=== PATIENT | male | born 1955 | race Caucasian/White ===

== ENCOUNTER → 2017-04-13 | Outpatient (CLI) | payer OTHER ==
--- NOTE | 2017-04-13 14:22 | US ---
EXAMINATION TYPE: US kidneys/renal and bladder DATE OF EXAM: 04/13/2017 COMPARISON: NONE CLINICAL HISTORY: R82.99 Other abnormal findings in urine. Abnormal urine EXAM MEASUREMENTS: Right Kidney: 12.6 x 6.3 x 5.7 cm Left Kidney: 13.1 x 6.3 x 5.2 cm Right Kidney: cystic area mid = 2.8 x 2.9 x 2.4cm . No evidence for solid mass. Left Kidney: lobulated, cystic areas noted with largest = 2.6 x 2.0 x 2.1cm . No solid masses seen. Bladder: appears wnl Bilateral Jets seen: yes There is no evidence for hydronephrosis at this point in time. No nephrolithiasis is seen. The urin panfilo bladder is anechoic. Bilateral ureteral jets are seen. IMPRESSION: Bilateral simple appearing renal cysts. No solid mass is detected.
== END | disposition home or self-care (01) ==
LOC: RADUSWWP 13:36
PROVIDERS: ATTEND Urology
DX: R82.99 Other abnormal findings in urine (principal)
CPT/HCPCS: 76770

== ENCOUNTER → 2017-11-15 | Outpatient (CLI) | payer OTHER ==
[2017-11-15 15:31] LABS: Blood Urea Nitrogen 14 mg/dL (9-20)
--- NOTE | 2017-11-15 17:07 | CT ---
EXAMINATION TYPE: CT abdomen pelvis w con DATE OF EXAM: 11/15/2017 COMPARISON: Renal ultrasound dated 04/13/2017 HISTORY: hematuria for 2 weeks. Prior report from CT of 1991 indicates terminal ileal thickening. CT DLP: 1669 mGycm Automated exposure control for dose reduction was used. TECHNIQUE: Helical acquisition of images was performed from the lung bases through the pelvis. CONTRAST: Performed with Oral Contrast and with IV Contrast, patient injected with 100 mL of Isovue 300. FINDINGS: LUNG BASES: 3 mm right lower lobe pulmonary nodule is seen on series 4 image 12. Remainder the lung b ases are clear. LIVER/GB: No significant abnormality is appreciated. PANCREAS: No pancreatic ductal dilatation. Pancreatic parenchyma enhances homogeneously. SPLEEN: No significant abnormality is seen. ADRENALS: Adrenal glands are symmetric without nodularity. KIDNEYS: Right renal cyst measures 2.8 cm cortically-based from the medial mid pole. Smaller probable cyst of the upper pole measures 5 mm and is too small to accurately characterize but hypoattenuated. Left renal cysts measure 1.7 cm in the upper pole and is also cortically based. No evidence of perin ephric fat stranding or hydronephrosis. No urinary bladder calculi or ureteral calculi. FREE AIR: No free air is visualized. REPRODUCTIVE ORGANS: No significant abnormality is seen URINARY BLADDER: No significant abnormality is seen. ADENOPATHY: Local adenopathy surrounding the desmoplastic reaction and enterovaginal fistula is desc ribed below in the bowel section. OSSEOUS STRUCTURES: No significant abnormality is seen. BOWEL: There is a desmoplastic reaction with tethering of bowel loops in the right mid abdomen from s eries 3 image 52 caudally to series 3 image 46. Centrally there is oral contrast on series 3 image 49 from a loop of proximal small bowel demonstrate bowel wall thickening up to 6 mm. Multiple loops of tethered small bowel are present in addition to bowel wall thickening of the cecum which is located a t the hepatic flexure. What appears to be the terminal ileum also demonstrates bowel wall thickening and mucosal deposition of fat from chronic inflammatory change. There is also comb sign of the vasa r ecta from engorgement. The distal ileum is curvilinear without evidence of proximal dilatation to sug gest obstruction. There is also extensive localization in the position of mesenteric fat surrounding chronically inflamed loops of bowel such as on series 3 image 66 with displacement of other loops of adjacent bowel. In consequence there is swirling of the mesenteric vasculature. Multiple loops of sma ll bowel within the mid abdomen demonstrate mild bowel wall thickening without proximal obstruction. Numerous surrounding prominent lymph nodes are seen within the mesentery such as on series 3 image 15 2. The transverse colon, descending colon and sigmoid colon are unremarkable. IMPRESSION: 1. 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 ADDITIONALLY THERE IS TH ICKENING OF THE DISPLACED CECUM AND COULD BE REACTIVE HOWEVER EVALUATION FOR UNDERLYING NEOPLASM IS R ECOMMENDED WITH COLONOSCOPY IF NOT RECENTLY PERFORMED. 2. BILATERAL SIMPLE RENAL CYSTS WITHOUT NEPHROLITHIASIS, HYDRONEPHROSIS, OR URETERAL CALCULUS. NO URO EPITHELIAL THICKENING IS SEEN. A Yellow level critical message alert has been initiated for Peter Stewart MD via the [employer] Critical Results System on 11/15/2017 5:04 PM. This message alert has been sent to Nicki Ness via the preferences provided by the clinician for the receipt of Radiology Critical Findings. Uriah Cellerix ID [id number].
== END | disposition home or self-care (01) ==
LOC: RADCTMAIN 13:51
PROVIDERS: ATTEND Urology
DX: N28.1 Cyst of kidney, acquired (principal); R59.0 Localized enlarged lymph nodes; K63.2 Fistula of intestine; R93.3 Abnormal findings on diagnostic imaging of other parts of digestive tract
CPT/HCPCS: 82565; 84520; 74177; 36415; Q9967

== ENCOUNTER 2017-12-08 08:47 | Day surgery (SDC) | payer OTHER ==
[2017-12-05 15:05] VITALS: BMI 30.5
[~2017-12-08 08:47] MED LIST: LACTATED RINGERS 1,000 ML IV SCH
[2017-12-08 09:15] VITALS: RESP 16; TEMP 97.9
[2017-12-08] MEDS ORDERED: LIDOCAINE 1% 20 ML VIAL (10MG/ML) FOR IV START INTRADERMA ONE (09:23)
[2017-12-08] MEDS ORDERED: GLYCOPYRROLATE 0.2 MG/ML 2 ML VIAL ONE (10:39)
[2017-12-08] MEDS ORDERED: PROPOFOL 10 MG/ML 20 ML VIAL IV ONE (10:39)
[2017-12-08] MEDS ORDERED: LIDOCAINE 1% INJ 10MG/ML (20 ML MDV) ONE (10:39)
--- NOTE | 2017-12-08 10:50 | P.GSHP ---
History of Present Illness H&P Date: 12/08/17 Chief Complaint: History Crohn's disease, epigastric pain This is a 62-year-old male who presents today for EGD colonoscopy. Patient has history Crohn's disease. Patient underwent recent CAT scan shows evidence of enteral enteral fistulas. He's had complaints of epigastric pain. Past Medical History Past Medical History: Hypertension Additional Past Medical History / Comment(s): CHROHN'S DISEASE History of Any Multi-Drug Resistant Organisms: None Reported Past Surgical History: Hernia Repair Additional Past Surgical History / Comment(s): COLONOSCOPY Past Anesthesia/Blood Transfusion Reactions: No Reported Reaction Smoking Status: Never smoker - Past Family History Mother Family Medical History: No Reported History Medications and Allergies Home Medications Medication Instructions Recorded Confirmed Type Lisinopril [Zestril] 20 mg PO DAILY 12/05/17 12/08/17 History Allergies Allergy/AdvReac Type Severity Reaction Status Date / Time prochlorperazine AdvReac SHAKING, Verified 12/05/17 15:00 [From Compazine] JAWS FEEL TIGHT Surgical - Exam Vital Signs Temp Pulse Resp BP Pulse Ox 97.9 F 75 16 155/88 97 12/08/17 09:13 12/08/17 09:13 12/08/17 09:13 12/08/17 09:13 12/08/17 09:13 - General well developed, no distress - Eyes PERRL - ENT normal pinna - Neck no masses - Respiratory normal expansion - Cardiovascular Rhythm: regular - Abdomen Abdomen: soft, non tender Assessment and Plan Assessment: Crohn's disease Epigastric pain Enteral enteral fistula We'll perform EGD colonoscopy.
--- NOTE | 2017-12-08 11:16 | P.OP ---
Date of Procedure: 12/08/17 Preoperative Diagnosis: Crohn's disease Entero-enteral fistula Postoperative Diagnosis: Antral gastritis Mild esophagitis Right colon inflammatory polyp pathology pending Procedure(s) Performed: EGD Colonoscopy Anesthesia: MAC Surgeon: Brandon Regalado Pathology: other (Colon polyp, antrum, esophagus) Condition: stable Disposition: PACU Description of Procedure: The patient's placed on the endoscopy table lateral position. He received IV sedation. The gastroscope placed oropharynx and passed in the esophagus and into the stomach. The scope was then placed through the pylorus. The first and second portion of the duodenum appeared normal. Scope summer back the antrum and this appeared mildly inflamed. A biopsies performed. The scope was then retroflexed and remainder of the stomach appeared normal. There is no significant hiatal hernia. The GE junction was at 40 cm. The distal esophagus appeared mildly inflamed a biopsies performed. The proximal esophagus appeared normal. Scope was withdrawn for patient. Next digital rectal exam was performed which revealed no abnormalities. The flexible colonoscope was then placed patient anus passed throughout the entire colon. The ileocecal was not visualized secondary to the right colon not expanding with air. There is thought to be some inflammatory changes. There were some inflammatory pseudopolyps seen these were biopsied in the right colon. The remainder the transverse colon descending colon and sigmoid colon appeared normal. Scope summer back the rectum this appeared normal. Scope was withdrawn for patient.
[2017-12-08 11:38] VITALS: BP 121/75; PULSE 77
== END 2017-12-08 12:06 | disposition home or self-care (01) ==
LOC: ORWHC2ENDO 08:47
PROVIDERS: ATTEND Surgery
DX: K29.50 Unspecified chronic gastritis without bleeding (principal); D12.2 Benign neoplasm of ascending colon; K21.0 Gastro-esophageal reflux disease with esophagitis; K63.5 Polyp of colon; K50.90 Crohn's disease, unspecified, without complications; I10 Essential (primary) hypertension; Z79.899 Other long term (current) drug therapy; Z88.8 Allergy status to other drugs, medicaments and biological substances
CPT/HCPCS: 88305; 45380; 43239; J2001; J2704

== ENCOUNTER → 2018-01-25 | Outpatient (CLI) | payer OTHER ==
[2018-01-25 14:38] LABS: Basophils # (A) 0.1 k/uL (0-0.2); Basophils % (A) 1 %; Eosinophils # (A) 0.2 k/uL (0-0.7); Eosinophils % (A) 2 %; HCT 46.3 % (39.0-53.0); HGB 15.1 gm/dL (13.0-17.5); Lymphocytes # (A) 0.9 k/uL (1.0-4.8); Lymphocytes % (A) 10 %; MCH 29.5 pg (25.0-35.0); MCHC 32.6 g/dL (31.0-37.0); MCV 90.4 fL (80.0-100.0); Mean Platelet Volume 7.1; Monocytes # (A) 0.6 k/uL (0-1.0); Monocytes % (A) 6 %; Neutrophils # (A) 7.5 k/uL (1.3-7.7); Neutrophils % (A) 81 %; Platelet Count 262 k/uL (150-450); RBC 5.13 m/uL (4.30-5.90); RDW 12.9 % (11.5-15.5); WBC 9.3 k/uL (3.8-10.6)
[2018-01-25 14:43] LABS: Appearance,Urine Clear (Clear); Bilirubin,Urine Negative (Negative); Blood,Urine Negative (Negative); Color,Urine Light Yellow; Glucose,Urine (UA) Negative (Negative); Ketones,Urine Negative (Negative); Leukocyte Esterase,Urine Negative (Negative); Nitrite,Urine Negative (Negative); PH, Urine 5.5 (5.0-8.0); Protein,Urine Negative (Negative); Specific Gravity,Urine 1.008 (1.001-1.035); Urobilinogen,Urine <2.0 mg/dL (<2.0)
[2018-01-25 14:54] LABS: Anion Gap 12 mmol/L; Blood Urea Nitrogen 16 mg/dL (9-20); Calcium 9.3 mg/dL (8.4-10.2); Carbon Dioxide 25 mmol/L (22-30); Chloride 102 mmol/L (98-107); Glucose 95 mg/dL (74-99); Sodium 139 mmol/L (137-145)
== END | disposition home or self-care (01) ==
LOC: LABPAT 13:12
PROVIDERS: ATTEND Urology
DX: Z01.818 Encounter for other preprocedural examination (principal); Z01.812 Encounter for preprocedural laboratory examination; I10 Essential (primary) hypertension; R35.0 Frequency of micturition; R31.21 Asymptomatic microscopic hematuria; E78.5 Hyperlipidemia, unspecified
CPT/HCPCS: 80048; 81003; 85025; 87086; 93005

== ENCOUNTER 2018-02-02 07:51 | Day surgery (SDC) | payer OTHER ==
[2018-01-25 14:38] VITALS: BMI 29.6
[~2018-02-02 07:51] MED LIST changes: +DEXAMETHASONE SOD PHOSPHATE 10 MG/ML 1 ML VIAL IV ONE; +HYDROmorphone 0.5 MG/0.5 ML SYRINGE IVP PRN; +ONDANSETRON 4 MG/2 ML VIAL IVP ONE; +ceFAZolin IN SWFI 2 GM/20 ML SYRINGE IVP ONE
[2018-02-02] MEDS ORDERED: LIDOCAINE 1% 20 ML VIAL (10MG/ML) FOR IV START INTRADERMA ONE (08:15)
[2018-02-02] MEDS ORDERED: fentaNYL (PF) 50 MCG/ML 2 ML AMP ONE (09:35)
[2018-02-02] MEDS ORDERED: SUCCINYLCHOLINE CHLORIDE 100 MG/5 ML SYR IV ONE (09:35)
[2018-02-02] MEDS ORDERED: MIDAZOLAM 2 MG/2 ML VIAL ONE (09:35)
[2018-02-02] MEDS ORDERED: LIDOCAINE 1% INJ 10MG/ML (20 ML MDV) ONE (09:35)
[2018-02-02] MEDS ORDERED: PROPOFOL 10 MG/ML 20 ML VIAL IV ONE (09:35)
[2018-02-02] MEDS ORDERED: HYDROmorphone (PF) 1 MG/ML ONE (09:35)
[2018-02-02] MEDS ORDERED: IOHEXOL 350 MG/ML 50 ML in EMPTY BAG 1 BAG IRRIGATION ONE (09:59)
[2018-02-02] MEDS ORDERED: LACTATED RINGERS 1,000 ML IV ONE (10:13)
--- NOTE | 2018-02-02 10:27 | FL ---
Fluoroscopy HISTORY: Cystogram, microscopic hematuria, retrograde ( 29 seconds fluoroscopy time supplied to the referring clinician. 12 intraoperative C-arm images docu ment the procedure. See dictated report from urology.
--- NOTE | 2018-02-02 10:35 | P.OP ---
Date of Procedure: 02/02/18 Preoperative Diagnosis: Abnormal Urine Cytology Postoperative Diagnosis: Same Procedure(s) Performed: Cystoscopy, bilateral retrograde pyelograms, selected bladder biopsies Anesthesia: MARYA Surgeon: Peter Stewart Estimated Blood Loss (ml): 0 IV fluids (ml): 600 Pathology: other (Bladder biopsies) Condition: stable Disposition: PACU Indications for Procedure: He is a 62-year-old male recently found to have atypical urine cytology on multiple occasions. He denies gross hematuria. He is a lifetime non-smoker. A renal ultrasound revealed simple renal cysts but was otherwise unremarkable. Cystoscopy showed no abnormalities. Recent urine cytology is suspicious, and urine FISH was positive. A recent CT scan confirmed the presence of renal cysts , but also showed an enteroenteric fistula related to his history of Crohn's disease. He will undergo cystoscopy with bladder biopsies and retrograde pyelograms, possible ureteroscopy. Operative Findings: Medial deviation of right mid ureter. No other abnormalities seen. Description of Procedure: The patient was taken to the operating room and placed in the dorsolithotomy position, with legs supported in Juan stirrups. The external genitalia was prepped and draped sterilely. The 30 lens was used to introduce the 22-Liberian Stortz cystoscopic sheath through the urethra and into the bladder under direct vision. The prostatic urethra showed evidence of mild lateral lobe enlargement , causing only minimal obstruction. The bladder was examined in its entirety. Both ureteral orifices were of normal anatomic location and configuration, and clear urine effluxed from both. No tumors or foreign bodies were seen. Using a 10-Liberian cone-tip catheter, bilateral retrograde pyelograms were performed in the standard fashion. The course of each ureter and intrarenal collecting system were seen on fluoroscopy. There were no filling defects or stones seen. There is no evidence of obstruction or hydronephrosis. The right mid ureter was noted to be medially deviated. Using the cold cup biopsy forceps, mucosal biopsies were obtained from the anterior bladder wall, posterior bladder wall, bladder dome, right lateral bladder wall, and left lateral bladder wall. The Bugbee electrode was used to fulgurate each biopsy site, attaining excellent hemostasis. There was no evidence of bladder perforation. The bladder was emptied and the cystoscope removed. The patient tolerated the procedure well was taken to the recovery room in stable condition.
[2018-02-02 10:46] VITALS: TEMP 97.7
[2018-02-02 12:05] VITALS: BP 139/76; PULSE 72; RESP 16
== END 2018-02-02 12:12 | disposition home or self-care (01) ==
LOC: OR 07:51
PROVIDERS: ATTEND Urology
DX: R82.90 Unspecified abnormal findings in urine (principal); N28.1 Cyst of kidney, acquired; R35.0 Frequency of micturition; R35.1 Nocturia; K63.2 Fistula of intestine; I10 Essential (primary) hypertension; E78.5 Hyperlipidemia, unspecified; K50.90 Crohn's disease, unspecified, without complications; E66.9 Obesity, unspecified; K43.9 Ventral hernia without obstruction or gangrene; J32.9 Chronic sinusitis, unspecified; Z79.899 Other long term (current) drug therapy; Z88.8 Allergy status to other drugs, medicaments and biological substances; Z68.29 Body mass index [BMI] 29.0-29.9, adult
CPT/HCPCS: 52204; 88305; 74420; C1758; J2250; J1100; J2405; J2001; J3010; J1170; J0330; J2704; Q9967; J0690

== ENCOUNTER → 2018-03-01 | Outpatient (CLI) | payer OTHER ==
--- NOTE | 2018-03-01 12:52 | CT ---
EXAMINATION TYPE: CT abdomen pelvis w con DATE OF EXAM: 03/01/2018 COMPARISON: CT abdomen pelvis November 15, 2017 HISTORY: Crohn's disease CT DLP: 1075.9 mGycm, Automated Exposure Control for Dose Reduction was Utilized. CONTRAST: CT scan of the abdomen and pelvis is performed with oral and with IV Contrast, patient injected with 100 mL of Isovue 300. Non-Enterography protocol. FINDINGS: LUNG BASES: There is new left basilar atelectatic change. There is stable 3 mm lateral right basilar nodule axial image 10. LIVER/GB: No significant abnormality is appreciated. PANCREAS: No significant abnormality is seen. SPLEEN: No significant abnormality is seen. ADRENALS: No significant abnormality is seen. KIDNEYS: There is redemonstration a few scattered simple appearing cysts throughout both kidneys. The re is symmetric cortical medullary uptake and excretion from both kidneys. There is persistent mild w all thickening involving the inferior posterior bladder wall, slightly more eccentrically prominent o n the left axial image 79. BOWEL: There is redemonstration of oral contrast seen in slightly prominent stomach. There is no susp icious dilatation of duodenal sweep. There is however cysts persistent suspicious area near proximal third portion inferiorly where there is inferior soft tissue extension to level of punctate densities where there is mild to moderate mid abdominal fluid and swirling centered near axial image 51. Image s is not significantly changed in appearance from prior study. Oral contrast does not reach distal il eal level making evaluation suboptimal. Visualized contrast-filled small bowel shows no suspicious op acification. The area of swirling is near terminal ileum which shows mild to moderate wall thickening contiguously extending into distal ileum of the right lower quadrant similar to prior study up to ax ial image 52. Remainder of colon shows no suspicious wall thickening or dilatation. PROSTATE/SEMINAL VESICLES: Prostate gland is upper limits of normal in size bulging on bladder base. Scattered pelvic phlebolith are redemonstrated. LYMPH NODES: No greater than 1cm abdominal or pelvic lymph nodes are appreciated. Some prominent but subcentimeter central mesenteric lymph nodes midabdomen just right of midline seen best for referenc e coronal image 39 are redemonstrated and stable. OSSEOUS STRUCTURES: There is multilevel spurring in the thoracolumbar spine. There is facet arthropat hy lower lumbar levels. There is disc space narrowing with vacuum disc phenomenon L5-S1 level. There is narrowing and sclerosis of the bilateral sacroiliac joints redemonstrated. OTHER: No significant additional abnormality is seen. IMPRESSION: 1. Stable abnormal area right midabdomen favoring enteroenteric fistula with additional desmoplastic reaction and tethering of adjacent loops of small bowel, sinus tracts are likely also present. There is chronic inflammatory change of the distal ileum redemonstrated. No bowel obstruction is seen. No n ew acute inflammatory process identified. 2.
== END | disposition home or self-care (01) ==
LOC: RADCTMAIN 10:49
PROVIDERS: ATTEND Surgery
DX: K52.9 Noninfective gastroenteritis and colitis, unspecified (principal)
CPT/HCPCS: 74177; Q9967